=== PATIENT | female | born 1985 | race Native Hawaiian/Other Pacific Islander ===

== ENCOUNTER 2017-10-03 19:43 | Emergency (ER) | payer MEDICAID ==
[2017-10-03 20:07] VITALS: BP 110/75; PULSE 90; RESP 16; TEMP 97.9; O2SAT 100
--- NOTE | 2017-10-03 20:53 | C.PDOC ---
History Of Present Illness 31 year old female presents to the ED for evaluation of a lump to her left upper back which has been present for "a while." Patient denies pain to the area. Patient also states her period is 5 days late and requests a test. She denies fever, chills. Time Seen by Provider: 10/03/17 20:07 Chief Complaint (Nursing): Abnormal Skin Integrity History Per: Patient History/Exam Limitations: no limitations Onset/Duration Of Symptoms: Days Current Symptoms Are (Timing): Still Present Additional History Per: Patient Past Medical History Reviewed: Historical Data, Nursing Documentation, Vital Signs Vital Signs: Last Vital Signs Temp 97.9 F 10/03/17 20:02 Pulse 90 10/03/17 20:02 Resp 16 10/03/17 20:02 BP 110/75 10/03/17 20:02 Pulse Ox 100 10/03/17 21:29 - Medical History PMH: No Chronic Diseases Surgical History: No Surg Hx Family History: States: Unknown Family Hx - Social History Hx Alcohol Use: Yes Hx Substance Use: No - Immunization History Hx Tetanus Toxoid Vaccination: No Hx Influenza Vaccination: No Hx Pneumococcal Vaccination: No Review Of Systems Constitutional: Negative for: Fever, Chills Skin: Positive for: Other (lump to left upper back ) Physical Exam - Physical Exam Appears: Non-toxic, No Acute Distress Skin: Normal Color, Warm, Dry, Other (1cm soft, non-tender, mobile mass to left scapular area. no erythema ) Head: Atraumatic, Normacephalic Eye(s): bilateral: Normal Inspection, EOMI Neck: Normal ROM Chest: Symmetrical Cardiovascular: Rhythm Regular Respiratory: Normal Breath Sounds Gastrointestinal/Abdominal: Soft, No Tenderness Extremity: Normal ROM Neurological/Psych: Oriented x3, Normal Speech Gait: Steady ED Course And Treatment O2 Sat by Pulse Oximetry: 100 (on RA) Pulse Ox Interpretation: Normal Medical Decision Making Medical Decision Making: Progress: POC urine test ordered and resulted negative. On reassessment, patient is resting comfortably, showing no signs of distress and is stable for discharge. Disposition Counseled Patient/Family Regarding: Diagnosis, Need For Followup - Disposition Disposition: HOME/ ROUTINE Disposition Time: 20:52 Condition: STABLE Additional Instructions: Your test was negative You have a lipoma which is benign mass to back and nothing to do Instructions: Lipoma (ED) Forms: [employer] ([place]ien) - POA Present On Arrival: None - Clinical Impression Clinical Impression: Lipoma of back, Negative test - PA / MANAGER [employer] / Resident Statement MD/DO has reviewed & agrees with the documentation as recorded. - Scribe Statement The provider has reviewed the documentation as recorded by the Scribe (Munira Ahn) All medical record entries made by the Scribe were at my direction and personally dictated by me. I have reviewed the chart and agree that the record accurately reflects my personal performance of the history, physical exam, medical decision making, and the department course for this patient. I have also personally directed, reviewed, and agree with the discharge instructions and disposition.
== END 2017-10-03 20:58 | disposition home or self-care (01) ==
LOC: C.ER 19:43
DX: D17.1 Benign lipomatous neoplasm of skin and subcutaneous tissue of trunk (principal); Z32.02 Encounter for pregnancy test, result negative

== ENCOUNTER 2018-12-03 14:03 | Inpatient (IN) | payer MEDICAID ==
--- NOTE | 2018-12-03 14:32 | OBHP ---
Datetime: 12/03/2018 14:19 IP Adm Impression: Term, intrauterine IP Admit Plan: Admit to unit Admit Comment, IP Provider: 33yo at 40.1 weeks ZULEYKA: [birth year] presents with complaints of leak age of clear fluid since 9am. Pt denies contractions, vaginal bleeding and reports good movemen ts. PNC: [facility] POb: G1: 2012 FTVD 6lb , female no complications G2: current , FOB HIV + PGYN: LMP: 02/2018; denies STIs, fibroids, ovarian cysts PMHX: denies ALL: NKDA; peppers - hives Meds: PNV; previously on Truvada for PRep but discontinued 09/2018 SHx: denies x 3 FHx: GM- stomach cancer EFM: 140s, mod variability (+) accels (-) decels TOCO: q4 min SVE: 5-6/70/-2 grossly ruptured A/P: 33yo at 40.1wks - Labor/SROM Admit to Labor and delivery- see H_P Pelvic Type - PN: Adequate Abdomen - PN: Normal Breast - PN: Normal General - PN: Normal FHR - Baseline A Provider: 140 Amniotic Fluid Color, Provider: Clear Membranes, Provider: Ruptured Contraction Comments Provider: irregular Comments, ACOG Physical Exam: SVE: 5.5/70/-2 Pool Provider: Positive IP Chief Complaint: Suspected ruptured membranes NICHD Variability Prov Fetus A: Moderate 6-25bpm NICHD Accel Fetus A IP Provider: 15X15 FHR Category Provider Fetus A: Category I NICHD Decel Fetus A IP Provider: None Dilatation, Provider: 6 Effacement, Provider: 70 Station, Provider: -2
--- NOTE | 2018-12-03 14:37 | OBADHP ---
Datetime: 12/03/2018 14:19 Admit Comment, IP Provider: 33yo at 40.1 weeks ZULEYKA: [birth year] presents with complaints of leak age of clear fluid since 9am. Pt denies contractions, vaginal bleeding and reports good movemen ts. PNC: [facility] POb: G1: 2012 FTVD 6lb , female no complications G2: SAB G3: current , FOB HIV + PGYN: LMP: 02/2018; denies STIs, fibroids, ovarian cysts PMHX: denies PSHx: denies ALL: NKDA; peppers - hives Meds: PNV; previously on Truvada for PRep but discontinued 09/2018 SHx: denies x 3 FHx: GM- stomach cancer EFM: 140s, mod variability (+) accels (-) decels TOCO: q4 min SVE: 5-6/70/-2 grossly ruptured A/P: 33yo at 40.1wks - Labor/SROM Admit to Labor and delivery Continuous TOCO/EFM Epidural PRN FOB (+) HIV- repeat rapid HIV ordered Continue to monitor Pelvic Type - PN: Adequate Abdomen - PN: Normal Breast - PN: Normal General - PN: Normal FHR - Baseline A Provider: 140 Amniotic Fluid Color, Provider: Clear Membranes, Provider: Ruptured Contraction Comments Provider: irregular Comments, ACOG Physical Exam: SVE: 5.5/70/-2 Pool Provider: Positive IP Chief Complaint: Suspected ruptured membranes NICHD Variability Prov Fetus A: Moderate 6-25bpm NICHD Accel Fetus A IP Provider: 15X15 FHR Category Provider Fetus A: Category I NICHD Decel Fetus A IP Provider: None Dilatation, Provider: 6 Effacement, Provider: 70 Station, Provider: -2 IP Adm Impression: Term, intrauterine IP Admit Plan: Admit to unit
[2018-12-03] MEDS ORDERED: Lactated Ringer's 1,000 ML IV ONE (14:43)
[2018-12-03] MEDS ORDERED: Lactated Ringer's 1,000 ML IV SCH (14:45)
[2018-12-03 14:52] LABS: BASO % 0.3 % (0.0-2.0); EOS % 0.4 % (0.0-4.0); HEMOGLOBIN 12.9 g/dL (11.0-16.0); LYMPH # 1.3 K/uL (1.0-4.3); LYMPH % 12.7 % (20.0-40.0); MEAN CELL VOLUME 91.3 fL (81.0-99.0); MEAN CORPUSCULAR HEMOGLOBIN 30.2 pg (27.0-31.0); MEAN CORPUSCULAR HGB CONC 33.1 g/dL (33.0-37.0); MEAN PLATELET VOLUME 8.2 fL (7.2-11.7); MONO # 0.6 K/uL (0.0-0.8); MONO % 5.3 % (0.0-10.0); NEUT # 8.4 K/uL (1.8-7.0); NEUT % 81.3 % (50.0-75.0); RBC 4.27 Mil/uL (3.80-5.20); RED CELL DISTRIBUTION WIDTH 14.7 % (11.5-14.5); WHITE BLOOD COUNT 10.4 K/uL (4.8-10.8)
[2018-12-03 15:17] LABS: SQUAMOUS EPITHIAL 1 /hpf (0-5); URINE BILIRUBIN NEGATIVE (NEGATIVE); URINE BLOOD NEGATIVE (NEGATIVE); URINE CLARITY Clear (Clear); URINE COLOR Straw (YELLOW); URINE GLUCOSE (UA) NORMAL (Normal); URINE LEUKOCYTE ESTERASE TRACE Leu/uL (Negative); URINE PROTEIN NEGATIVE (NEGATIVE); URINE UROBILINOGEN NORMAL mg/dL (0.2-1.0)
[2018-12-03] MEDS ORDERED: Bupivacaine HCl/FentaNYL Cit 0 ML EPI ONE (15:58)
--- NOTE | 2018-12-03 16:46 | OBPN ---
Datetime: 12/03/2018 16:41 IP Progress Impression: Normal progression of labor IP Procedures: Sterile Vag Exam IP Progress Plan: Continue present management Membranes, Provider: Intact FHR - Baseline A Provider: 130 Gestation - Est Wks by US: 40.1 IP Progress Note Comment: at 40.1wks - Labor/SROM VSS Cervical exam unchanged- for pitocin for labor augmentation s/p epidural Continue to monitor Vital Signs Provider: Reviewed; Within Normal Limits NICHD Accel Fetus A IP Provider: 15X15 FHR Category Provider Fetus A: Category I NICHD Variability Prov Fetus A: Moderate 6-25bpm Dilatation, Provider: 6 Effacement, Provider: 70 Station, Provider: -2 Datetime: 12/03/2018 14:19 Pool Provider: Positive Amniotic Fluid Color, Provider: Clear Contraction Comments Provider: irregular NICHD Decel Fetus A IP Provider: None
[2018-12-03] MEDS ORDERED: Oxytocin 30 UNIT 30 UNITS/500 ML BAG IV ONE (16:49)
--- NOTE | 2018-12-03 19:41 | OBPN ---
Datetime: 12/03/2018 19:22 IP Progress Impression: Normal progression of labor IP Progress Plan: Continue present management; Augmentation Membranes, Provider: Ruptured Contraction Comments Provider: irregular FHR - Baseline A Provider: 130 Gestation - Est Wks by US: 40.1 IP Progress Note Comment: 33yo at 40.1 weeks- SROM/Labor VSS Pitocin for augmentation s/p epidural for pain management Continue to monitor Anticipate vaginal delivery NICHD Accel Fetus A IP Provider: 15X15 FHR Category Provider Fetus A: Category I NICHD Variability Prov Fetus A: Moderate 6-25bpm Dilatation, Provider: 7 Effacement, Provider: 80 Station, Provider: -2
--- NOTE | 2018-12-03 21:18 | OBPN ---
Datetime: 12/03/2018 21:12 IP Progress Impression: Normal progression of labor IP Procedures: Sterile Vag Exam IP Progress Plan: Anticipate Vaginal Delivery FHR - Baseline A Provider: 120 Gestation - Est Wks by US: 40.1 IP Progress Note Comment: at 40.1- Labor Pt fully dilated and pushing Anticipate vaginal delivery Vital Signs Provider: Reviewed NICHD Variability Prov Fetus A: Moderate 6-25bpm Dilatation, Provider: 10 Effacement, Provider: 10 Station, Provider: 0 NICHD Decel Fetus A IP Provider: Early; Variable
[2018-12-03] MEDS ORDERED: Bupivacaine HCl/FentaNYL Cit 100 ML EPI ONE (22:10)
[2018-12-03] MEDS ORDERED: Oxycodone/Acetaminophen 5/325 mg Tab PO PRN (23:45)
--- NOTE | 2018-12-03 23:50 | OBDS ---
DELIVERY PERSONNEL Delivery Doctor: Chio Cruz DO Scrub Nurse: Madie White Industrial Order Clerk: Dagmar Waddell RN Anesthesiologist: Michelle Beard MD MATERNAL INFORMATION Delivery Anesthesia: Epidural Estimated Blood Loss (ml): 200 Maternal Complications: None RN Comments: LIVE BABY BOY SKIN TO SKIN DONE Provider Comments: Pt fully dilated and pushing. Right mediolateral episiotomy performed. Head deliv ered 11:03pm ZACHARY. No nuchal cord, shoulders and body delivered without difficulty. Placenta delivered 11:13pm spontaneous and intact. RML repaired with 2-0 chromic, good hemostasis. Fundus firm. EBL: 20 0cc viable male infant apgars 9/9 wt 8lb LABOR SUMMARY EDC: 12/02/2018 00:00 No. Babies in Womb: 1 Attempted: No Labor Anesthesia: Epidural LABOR INFORMATION Onset of Labor: 12/03/2018 09:27 Complete Dilatation: 12/03/2018 20:30 Group B Beta Strep: Negative Antibiotics # of Doses: 0 Antibiotics Time of Last Dose: 0 (Annotations: Data stored by [facility] on behalf of user) Steroids Given: None Reason Steroids Not Administered: Not Applicable MEMBRANES Membranes Rupture Method: Spontaneous Rupture of Membranes: 12/03/2018 09:27 Length of Rupture (hrs): 13.60 Amniotic Fluid Color: Clear Amniotic Fluid Amount: Moderate Amniotic Fluid Odor: Normal STAGES OF LABOR Stage 1 hrs: 11 Stage 1 min: 3 Stage 2 hrs: 2 Stage 2 min: 33 Stage 3 hrs: 0 Stage 3 min: 4 Total Time in Labor hrs: 13 Total Time in Labor min: 40 VAGINAL DELIVERY Episiotomy: Right Mediolateral Laceration Type: None Laceration Repair: Yes Laceration Repair Note: Right mediolateral episiotomy performed- no extension. Repaired with 2-0 chr omic, good hemostasis. Sponge Count Correct: Yes Sharps Count Correct: Yes BABY A INFORMATION Infant Delivery Date/Time: 12/03/2018 23:03 Method of Delivery: Vaginal Born in Route : No : N/A Forceps: N/A Vacuum Extraction: N/A Shoulder Dystocia : No SHOULDER DYSTOCIA BABY A Infant Delivery Date/Time: 12/03/2018 23:03 PRESENTATION/POSITION BABY A Presentation: Cephalic Cephalic Presentation: Vertex Vertex Position: Left Occipital Anterior Breech Presentation: N/A PLACENTA INFORMATION BABY A Placenta Delivery Time : 12/03/2018 23:07 Placenta Method of Delivery: Spontaneous Placenta Status: Delivered SCORES BABY A Heart Rate 1 min: >100 bpm Resp Effort 1 min: Good Cry Reflex Irritability 1 min: Cough or Sneeze or Pulls Away Muscle Tone 1 min: Active Motion Color 1 min: Body [place], Extremities Blue Resuscitation Effort 1 min: Tactile Stimulation SCORE 1 MIN: 9 Heart Rate 5 min: >100 bpm Resp Effort 5 min: Good Cry Reflex Irritability 5 min: Cough or Sneeze or Pulls Away Muscle Tone 5 min: Active Motion Color 5 min: Body [place], Extremities Blue Resuscitation Effort 5 min: Tactile Stimulation SCORE 5 MIN: 9 INFANT INFORMATION BABY A Gestational Age at Delivery: 40.1 Gestational Status: Term Outcome : Liveborn Infant Condition : Stable Infant Sex: Male IDENTIFICATION/MEDS BABY A ID Band Number: [id number] ID Band Location: Left Leg; Left Arm Sensor Applied: Yes Sensor Number: [id number] Sensor Location : Cord Clamp Vitamin K Given : Not Given Erythromycin Given: Not Given WEIGHT/LENGTH BABY A Birthweight (gms): 3625 Weight (lb): 8 Weight (oz): 0 Infant Length Inches: 20.00 Length cms: 50.8 CORD INFORMATION BABY A No. Cord Vessels: 3 Nuchal Cord : N/A Cord Blood Taken: Yes Infant Suction: Mouth; Nose ASSESSMENT BABY A Infant Complications: None Physical Findings at Delivery: Within Normal Limits Respirations: Appears Normal Forming And Assembling Supervisor/ALS Called : No Care By: BALJIT SINGH Transferred To: Remains with Mother
[2018-12-04] MEDS ORDERED: Benzocaine/Menthol 20%-0.5% Topical Spray (60 ml) TOP PRN ×2 (07:57→08:15)
[2018-12-04 08:33] VITALS: RESP 18
[2018-12-04 11:37] LABS: BASO % 0.1 % (0.0-2.0); EOS # 0.1 K/uL (0.0-0.7); EOS % 0.3 % (0.0-4.0); HEMOGLOBIN 11.3 g/dL (11.0-16.0); LYMPH # 1.6 K/uL (1.0-4.3); LYMPH % 9.7 % (20.0-40.0); MEAN CELL VOLUME 91.3 fL (81.0-99.0); MEAN CORPUSCULAR HEMOGLOBIN 29.3 pg (27.0-31.0); MEAN CORPUSCULAR HGB CONC 32.1 g/dL (33.0-37.0); MEAN PLATELET VOLUME 8.3 fL (7.2-11.7); MONO # 1.1 K/uL (0.0-0.8); MONO % 6.4 % (0.0-10.0); NEUT # 13.6 K/uL (1.8-7.0); NEUT % 83.5 % (50.0-75.0); PLATELET COUNT 221 K/uL (130-400); RBC 3.86 Mil/uL (3.80-5.20); RED CELL DISTRIBUTION WIDTH 14.4 % (11.5-14.5)
[2018-12-04 11:39] LABS: WHITE BLOOD COUNT 16.3 K/uL (4.8-10.8)
[2018-12-04 12:38] LABS: BANDS 4 % (0-2); LYMPHOCYTE 7 % (20-40); MONOCYTE 7 % (0-10); NEUTROPHIL 81 % (50-75); PLATELET ESTIMATE NORMAL (NORMAL); REACTIVE LYMPHOCYTES 1 % (0-0); TOTAL CELLS COUNTED 100
[2018-12-04 12:39] LABS: ANISOCYTOSIS SLIGHT
[2018-12-04 12:40] LABS: LARGE PLATELETS PRESENT
--- NOTE | 2018-12-04 13:57 | OBPPN ---
Datetime: 12/04/2018 10:04 PP Pain Prov: Within normal limits PP Nausea Prov: Denies PP Breasts Prov: Not Done PP Heart Prov: Normal PP Lungs Prov: Normal PP Abdomen/Uterus Prov: Normal PP Lochia Prov: Normal PP Vulva/Perineum Prov: Normal PP CVA Tenderness Prov: Normal PP Extremities Prov: Normal PP C/S Incision Prov: Not Applicable PP Progress Prov: Abnormal PP Comments Phys Exam Prov: Fundus firm and non-tender, below umbilicus PP Impression Prov: Normal progression PP Plan Prov: Continue present management PP Progress Note Prov: PPD # 1 S/P uncomplicated CBC for today not done yet O+ / Male Stable and Satisfactory condition and recovery Advance care Hope to discharge home in AM IP PP Procedures: None Vital Signs Provider PP: Reviewed; Within Normal Limits
[2018-12-05 23:08] VITALS: BP 97/58; PULSE 68; TEMP 97; O2SAT 99
== END 2018-12-05 19:00 | disposition home or self-care (01) | DRG 372 ==
LOC: C.EROB 14:03 → C.4D 14:20 → C.4M 12-04 01:17
PROVIDERS: ADMIT Obstetrics & Gynecology; ATTEND Obstetrics & Gynecology
PROC: 10E0XZZ Delivery of Products of Conception, External Approach (ICD-10-PCS; principal; 2018-12-03)
PROC: 0W8NXZZ Division of Female Perineum, External Approach (ICD-10-PCS; 2018-12-03)
DX: O42.02 Full-term premature rupture of membranes, onset of labor within 24 hours of rupture (principal); Z3A.40 40 weeks gestation of pregnancy; Z37.0 Single live birth